=== PATIENT | male | born 1950 | race Caucasian/White ===

== ENCOUNTER 2017-10-25 20:56 | Emergency (ER) | payer MEDICARE, OTHER ==
[~2017-10-25] VITALS: Ht 167.6 cm; Wt 72.7 kg
[~2017-10-25 20:56] MED LIST: METF500T7 PO
[2017-10-25 21:28] LABS: GLUCOSE,POINT OF CARE 267 MG/DL (70-110)
[2017-10-25] MEDS ORDERED: LOSA25TA21 PO (21:29)
[2017-10-25] MEDS ORDERED: ASPI81 PO (21:29)
[2017-10-25 23:12] VITALS: BP 130/80
== END 2017-10-25 23:25 | disposition home or self-care (01) ==
LOC: EMS 20:57
DX: H91.91 Unspecified hearing loss, right ear (principal); E11.9 Type 2 diabetes mellitus without complications; I10 Essential (primary) hypertension
CPT/HCPCS: 70450; 99284

== ENCOUNTER 2017-11-26 09:36 | Emergency (ER) | payer MEDICARE ==
[~2017-11-26] VITALS: Ht 167.6 cm; Wt 73.6 kg
[~2017-11-26 09:36] MED LIST changes: +ASPI81 PO; +LOSA25TA16 PO
[2017-11-26 10:13] LABS: GLUCOSE,POINT OF CARE 93 MG/DL (70-110)
[2017-11-26 12:08] VITALS: BP 155/80
[2017-11-26] MEDS ORDERED: IBUPROFEN 800 MG TABLET PO ONE (12:30)
== END 2017-11-26 13:06 | disposition home or self-care (01) ==
LOC: EMS 09:37
DX: S62.631A Displaced fracture of distal phalanx of left index finger, initial encounter for closed fracture (principal); E11.9 Type 2 diabetes mellitus without complications; I10 Essential (primary) hypertension; Z79.84 Long term (current) use of oral hypoglycemic drugs; W23.0XXA Caught, crushed, jammed, or pinched between moving objects, initial encounter; Y93.89 Activity, other specified; Y92.098 Other place in other non-institutional residence as the place of occurrence of the external cause; Y99.8 Other external cause status
CPT/HCPCS: 99284

== ENCOUNTER 2018-02-02 10:55 | Emergency (ER) | payer MEDICARE ==
[~2018-02-02] VITALS: Ht 162.6 cm; Wt 63.0 kg
[~2018-02-02 10:55] MED LIST changes: +ATOR40TA28 PO; -METF500T7 PO
[2018-02-02 11:08] LABS: GLUCOSE,POINT OF CARE 245 MG/DL (70-110)
[2018-02-02] MEDS ORDERED: SODIUM CHLORIDE 0.9% 1,000 ML IV ONE (11:45)
[2018-02-02 12:13] LABS: BASOPHILS % (AUTO) 0.3 % (0.0-2.0); EOSINOPHILS % (AUTO) 0.3 % (1.0-6.0); HEMATOCRIT 38.5 % (41-53); HEMOGLOBIN 13.3 g/dL (13.5-17.5); LYMPHOCYTES # (AUTO) 0.8 K/uL (1.0-4.8); LYMPHOCYTES % (AUTO) 15.3 % (22.0-44.0); MEAN CORPUSCULAR HGB CONC 34.5 G/dL (31.0-37.0); MEAN CORPUSCULAR VOLUME 96 fL (80-100); MONOCYTES # (AUTO) 0.5 K/uL (0.1-1.0); MONOCYTES % (AUTO) 9.3 % (2.0-9.0); NEUTROPHILS # (AUTO) 3.8 K/uL (1.8-7.7); NEUTROPHILS % (AUTO) 74.8 % (40.0-70.0); PLATELET COUNT (AUTO) 291 K/uL (150-450); RED BLOOD CELL COUNT(AUTO) 4.03 MIL/uL (4.50-5.90); RED CELL DISTRIBUTION WIDTH 12.2 % (11.5-14.5)
[2018-02-02 12:19] LABS: ANION GAP 6 mmol/L (8-16); CALCIUM, TOTAL 8.7 mg/dL (8.8-10.5); CARBON DIOXIDE 29 mmol/L (22-29); CHLORIDE 96 mmol/L (98-107); CREATININE 0.76 mg/dL (0.60-1.30); GLOMERULAR FILTR. RATE CALC > 60 mL/min (>60); GLUCOSE,RANDOM 227 mg/dL (70-110); POTASSIUM 4.8 mmol/L (3.5-5.1); SODIUM SERUM 131 mmol/L (136-145); UREA NITROGEN, BLOOD 14 mg/dL (7-18)
[2018-02-02 12:25] LABS: ALANINE AMINOTRANSFERASE 27 U/L (12-78); ALBUMIN 4.2 g/dL (3.4-5.0); ALKALINE PHOSPHATASE 76 U/L (46-116); ASPARTATE AMINOTRANSFERASE 27 U/L (15-37); BILIRUBIN,TOTAL 0.4 mg/dL (0.1-1.0)
[2018-02-02 13:08] LABS: GLUCOSE,POINT OF CARE 155 MG/DL (70-110)
[2018-02-02 13:39] VITALS: BP 151/71
== END 2018-02-02 14:10 | disposition home or self-care (01) ==
LOC: EMS 10:55
DX: E11.65 Type 2 diabetes mellitus with hyperglycemia (principal); R42 Dizziness and giddiness; E78.00 Pure hypercholesterolemia, unspecified; I10 Essential (primary) hypertension; Z79.82 Long term (current) use of aspirin; Z79.899 Other long term (current) drug therapy
CPT/HCPCS: 82948; 93005; 96360

== ENCOUNTER → 2018-02-22 | Outpatient (CLI) | payer MEDICARE ==
[~2018-02-22] MED LIST changes: +GADOBUTROL 1 MMOL/ML 10 ML VIAL IVP ONE
== END | disposition home or self-care (01) ==
LOC: RADMN 08:31
PROVIDERS: ATTEND Internal Medicine
DX: I66.21 Occlusion and stenosis of right posterior cerebral artery (principal); I67.82 Cerebral ischemia; G93.89 Other specified disorders of brain
CPT/HCPCS: 70544; 70553; A9585